=== PATIENT | male | born 1955 | race Caucasian/White ===

== ENCOUNTER 2022-11-17 06:12 | Day surgery (SDC) | payer MEDICARE, SELFPAY ==
[2022-11-17] VITALS (13 sets, daily range): BP systolic 101–199; BP diastolic 70–103; PULSE 50–95; RESP 16–20; TEMP 36.2–36.6; O2SAT 95–98; BMI 28.9
[2022-11-17] MEDS: LACTATED RINGERS 1000 ML 1,000 ML 100 ML IV (06:40)
[2022-11-17] MEDS: SODIUM CHLORIDE 0.9 % (FLUSH) 10 ML SYRINGE IVF (06:40)
--- NOTE | 2022-11-17 06:47 | SUR.PREOP ---
HOME COVID NEGATIVE.
[2022-11-17] MEDS: CEFAZOLIN 2 GM INJ IVP (07:37)
[2022-11-17] MEDS: BUPIVACAINE 0.25% 30 ML INJECTION (07:46)
[2022-11-17] MEDS: LIDOCAINE 0.5%-EPI 1:200,000 50 ML VIAL INJECTION (07:46)
--- NOTE | 2022-11-17 08:40 | PM.GSPRC ---
Operative Note Date of procedure: 11/17/22 Pre-op diagnosis: 1. Symptomatic right inguinal hernia. 2. Recent right total hip replacement Post-op diagnosis: 1. Right direct inguinal hernia. Type of Procedure: 1. Laparoscopic right inguinal hernia repair with mesh. Indications: 67-year-old male was seen in clinic for evaluation of right inguinal hernia. He initially noticed a bulge in the right groin over 1 year ago. The bulge was out most of the time but at night he usually did not notice it. 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 On clinical exam patient had a small right inguinal hernia bulge that was reducible. There were no obvious hernias palpated on the left. Given patient's clinical history and his physical exam, laparoscopic right inguinal hernia repair was recommended. The procedure was discussed in detail. The risks associated procedure including infection, bleeding, injury to preperitoneal structures, nerve pain, and hernia recurrence were all discussed with the patient, and he agreed to proceed. Procedure Description: After discussing the risks and benefits of the procedure, the patient signed informed consent.? The operative site was marked and the patient was brought to the operating room and placed on the operating table in supine position.? Care was taken to pad the patient's pressure points.?? The patient was then intubated by anesthesia.?? The operative site was then prepped and draped in the usual sterile fashion.? A time-out was then performed. An infraumbilical skin incision was made with a scalpel and subcutaneous tissues were dissected with electrocautery. Anterior sheath was incised with electrocautery. Initially, I was having difficulty finding retro rectus space. The posterior sheath was divided and was retracted and that was making it difficult to find the right plane. The edges of the posterior sheath were grasped and closed with 3-0 Vicryl stitch. The right rectus muscle was retracted laterally. A 12 mm spacemaker dissector system was introduced into the incision and advanced over the posterior sheath. Preperitoneal space was dissected with manually insufflating air under direct visualization. Once the tissues were dissected, the balloon was deflated and removed.? A laparoscopic balloon was placed into preperitoneal space and balloon was inflated. Preperitoneal space was insufflated with air. No bleeding was identified upon examination of preperitoneal space. We then placed two 5 mm ports suprapubically under direct visualization. ? The preperitoneal tissues were bluntly dissected with graspers.? The pubic bone was identified and? cleared from preperitoneal tissue.?? Inferior epigastrics on right?side were retracted towards the abdominal wall.?? Spermatic cord? was identified and dissected circumferentially.? This was done bluntly. The direct hernia space was identified.? Peritoneal edge was identified and there was no evidence of indirect inguinal hernia. Peritoneum was dissected away from the spermatic cord bluntly.?When adequate space was developed for mesh placement, a right sided Parietex? mesh was used and positioned around the spermatic cord. The mesh was tacked medially and laterally with?tacks.? Additional local anesthetic was injected directly into pre-peritoneal space. ? The space was deflated under direct visualization and mesh appeared to be still lying in a good position. The ports were then removed. Patient's abdomen was dull to percussion suggestive of pneumoperitoneum. The posterior sheath was grasped was Lisa clamps and incised with Metzenbaum scissors. Abdomen was entered and air was evacuated. This posterior sheath and peritoneal opening was then closed with a [id number] 3-0 Vicryl stitch. Anterior sheath was then closed with a running 0-0 vicryl suture. Skin was closed with 4-0 monocryl using subcuticular stitch. Steri strips were applied over the laparoscopic?incisions. ? All counts were correct at the end of the case. Patient tolerated the procedure well and was transferred to PACU without any complications. Findings: Direct right inguinal hernia Anesthesia: GETA Surgeon: Asad Tyler MD Estimated blood loss (mL): 5 Condition: stable Disposition: PACU
--- NOTE | 2022-11-17 08:48 | W.ANESCHARGE ---
Anesthesia Charges Start Date/Time Anesthesia Start Date: 11/17/22 Anesthesia Start Time: 07:29 Stop Date/Time Anesthesia Stop Date: 11/17/22 Anesthesia Stop Time: 08:47 Summary Emergency: No
--- NOTE | 2022-11-17 09:18 | W.ANESCHARGE ---
Anesthesia Charges Start Date/Time Anesthesia Start Date: 11/17/22 Anesthesia Start Time: 07:29 Stop Date/Time Anesthesia Stop Date: 11/17/22 Anesthesia Stop Time: 08:47 Summary Emergency: No
--- NOTE | 2022-11-17 09:33 | SUR.PHASEII ---
SMALL AMOUNT OF OOZING FROM UMBILICAL INCISION. 4X4 GAUZE FOLDED AND TAPED INTO BELLY BUTTON.
[2022-11-17] MEDS: HYDROCODONE-ACETAMIN 5-325 MG 1 TAB PO (10:10)
== END 2022-11-17 10:55 | disposition home or self-care (01) ==
PROVIDERS: PCP Student in an Organized Health Care Education/Training Program; Visit Provider Surgery
PROC: (CPT 49650; principal; 2022-11-17 07:30)
DX: K40.90 Unilateral inguinal hernia, without obstruction or gangrene, not specified as recurrent (principal)
CPT/HCPCS: 49650; 00840; 00860; A9270; C1781; J0330; J0690; J1885; J2250; J2370; J2405; J2704; J2710; J3010; J3490; J7120

== ENCOUNTER 2022-11-26 11:46 | Outpatient (CLI) | payer MEDICARE, SELFPAY | END 2022-11-26 11:47 | disposition home or self-care (01) | PROVIDERS: PCP Student in an Organized Health Care Education/Training Program; Visit Provider Surgery | DX: R33.9 Retention of urine, unspecified (principal) | CPT/HCPCS: 87086 ==

== ENCOUNTER 2022-11-26 11:50 | Outpatient (CLI) | payer MEDICARE, SELFPAY ==
[2022-11-26 12:30] LABS: Creatinine* 1.1 mg/dL (0.5-1.5); Estimated Glomerular Filt Rate 74 ml/min
--- NOTE | 2022-11-26 14:00 | CRLHL7_ITS ---
For Patients: As a result of the Century Cures Act, medical imaging exams and procedure reports are released immediately into your electronic medical record. You may view this report before your referring provider. If you have questions, please contact your health care provider. INDICATION: Urine retention after surgery 1 week ago.. TECHNIQUE: CT abdomen and pelvis acquired with 88 cc Isovue 370 IV contrast. COMPARISON: None. FINDINGS: Lower chest: Unremarkable. Liver: Unremarkable. Normal in size and attenuation. No suspicious masses. Gallbladder and bile ducts: Unremarkable. No stones or inflammation. No biliary dilatation. Pancreas: Fatty interdigitation at the head of the pancreas. No mass or inflammation. Spleen: Unremarkable. Normal in size. No masses. Adrenal glands: Unremarkable. No nodules. Kidneys: Mild to moderate bilateral hydroureteronephrosis is noted. No renal stones or other obstructing lesions identified. Punctate hyperdensity at the superior pole of the right kidney, indeterminate. Additional similar punctate hypodensity at the inferior pole of the right kidney. GI tract: Small hiatal hernia. Wandering cecum. Normal in caliber. No sign of mass or inflammation. Normal appendix. Vasculature: Abdominal aorta is normal in caliber. Mesenteric arteries are patent. Lymph nodes: No lymphadenopathy. Peritoneum/Abdominal Wall: Postsurgical changes in the anterior abdomen are noted with diffuse subcutaneous edema. Fat containing umbilical hernia. Right inguinal hernia with fluid. No sign of mass or infiltration. No free air or significant free fluid. Pelvis: Limited evaluation of the pelvis due to streak artifact from right total hip arthroplasty. Within the limitations, severely enlarged bladder. Enlarged nodular prostate indenting the base of the bladder. Bones: Right total hip arthroplasty changes. Mild multilevel degenerative changes in the spine. IMPRESSION: Enlarged bladder with [id number] bilateral hydroureteronephrosis. postsurgical changes in the anterior abdomen. Enlarged nodular prostate. Please note that all CT scans at this facility use dose modulation, iterative reconstruction, and/or weight-based dosing when appropriate to reduce radiation dose to as low as reasonably achievable. Dictated by Sushma Hare MD @ 11/26/2022 1:37:43 PM (Electronically Signed)
== END 2022-11-26 11:51 | disposition home or self-care (01) ==
PROVIDERS: PCP Student in an Organized Health Care Education/Training Program; Visit Provider Surgery
DX: R33.9 Retention of urine, unspecified (principal); N13.30 Unspecified hydronephrosis; N40.0 Benign prostatic hyperplasia without lower urinary tract symptoms
CPT/HCPCS: 36415; 74177; 82565; Q9967